=== PATIENT | male | born 1980 | race Caucasian/White ===

== ENCOUNTER → 2016-07-23 | Outpatient (CLI) | payer BC ==
--- NOTE | 2016-07-26 09:21 | XR ---
EXAMINATION TYPE: XR chest 2V DATE OF EXAM: 07/23/2016 12:54 PM COMPARISON: NONE TECHNIQUE: PA and lateral views submitted. HISTORY: Chest pain FINDINGS: The lungs are clear and there is no pneumothorax, pleural effusion, or focal pneumonia. IMPRESSION: 1. No acute process.
== END | disposition home or self-care (01) ==
LOC: RADXRYALE 11:56
PROVIDERS: ATTEND Family Medicine
DX: R07.1 Chest pain on breathing (principal)
CPT/HCPCS: 71020

== ENCOUNTER 2019-07-04 21:47 | Emergency (ER) | payer BC ==
[2019-07-04] MEDS ORDERED: SODIUM CHLORIDE 0.9% 1,000 ML IV STA (22:10)
[2019-07-04 22:32] LABS: Basophils % (A) 0 %; Eosinophils # (A) 0.1 k/uL (0-0.7); Eosinophils % (A) 3 %; HCT 44.6 % (39.0-53.0); HGB 15.1 gm/dL (13.0-17.5); Lymphocytes # (A) 1.5 k/uL (1.0-4.8); Lymphocytes % (A) 33 %; MCHC 33.9 g/dL (31.0-37.0); MCV 91.4 fL (80.0-100.0); Mean Platelet Volume 8.6; Monocytes # (A) 0.3 k/uL (0-1.0); Monocytes % (A) 5 %; Neutrophils # (A) 2.6 k/uL (1.3-7.7); Neutrophils % (A) 56 %; Platelet Count 132 k/uL (150-450); RBC 4.87 m/uL (4.30-5.90); RDW 12.6 % (11.5-15.5); WBC 4.7 k/uL (3.8-10.6)
[2019-07-04 22:36] LABS: Amorphous Sediment,Urine Rare /hpf; Appearance,Urine Cloudy (Clear); Bilirubin,Urine Negative (Negative); Blood,Urine Negative (Negative); Color,Urine Yellow; Glucose,Urine (UA) Negative (Negative); Ketones,Urine Negative (Negative); Leukocyte Esterase,Urine Negative (Negative); Mucus,Urine Rare /hpf; Nitrite,Urine Negative (Negative); PH, Urine 7.5 (5.0-8.0); Protein,Urine Negative (Negative); RBC,Urine 2 /hpf (0-5); Specific Gravity,Urine 1.017 (1.001-1.035); Squamous Epithelial Cell,Urine 1 /hpf (0-4); Urobilinogen,Urine <2.0 mg/dL (<2.0); WBC,Urine 3 /hpf (0-5)
[2019-07-04 22:40] LABS: ALT 60 U/L (4-49); AST 36 U/L (17-59); African American GFR (CKD) >90 (>60 ml/min/1.73 sqM); Albumin 4.3 g/dL (3.5-5.0); Alkaline Phosphatase 49 U/L (38-126); Anion Gap 6 mmol/L; Blood Urea Nitrogen 15 mg/dL (9-20); Calcium 9.2 mg/dL (8.4-10.2); Carbon Dioxide 26 mmol/L (22-30); Chloride 102 mmol/L (98-107); Glucose 124 mg/dL (74-99); Magnesium 2.2 mg/dL (1.6-2.3); Non-African American GFR(CKD) >90 (>60 ml/min/1.73 sqM); Potassium 3.9 mmol/L (3.5-5.1); Sodium 134 mmol/L (137-145); Total Bilirubin 0.8 mg/dL (0.2-1.3); Total Protein 7.1 g/dL (6.3-8.2)
[2019-07-04 22:44] LABS: D-Dimer <0.17 mg/L FEU (<0.60); Partial Thromboplastin Time 22.7 sec (22.0-30.0); Prothrombin Time 10.6 sec (9.0-12.0)
--- NOTE | 2019-07-04 23:01 | XR ---
EXAMINATION TYPE: XR chest 2V DATE OF EXAM: 07/04/2019 COMPARISON: 07/23/2016 HISTORY: Syncope TECHNIQUE: FINDINGS: Heart and mediastinum are normal. Lungs are clear of infiltrate. There is no hilar masses. Costophrenic angles are clear. Bony thorax is intact. There are chest leads. IMPRESSION: No active cardiopulmonary disease. Normal heart. No change.
[2019-07-04] MEDS ORDERED: LORazepam 1 MG TAB PO STA (23:39)
--- NOTE | 2019-07-05 00:13 | ED ---
General Adult HPI - General Chief complaint: Syncope Stated complaint: Near Syncope Time Seen by Provider: 07/04/19 21:49 Source: EMS, RN notes reviewed, old records reviewed Mode of arrival: EMS Limitations: no limitations - History of Present Illness Initial comments: 39-year-old male patient presents to ED for chief complaint of near syncopal episode. Patient reports that he was at home sitting on the couch when he began to feel lightheaded, tightness in his chest and mildly short of breath. Patient reports that he fell nauseous and palms were sweaty. Patient reports that he feels that he felt as if he was going to pass out. This reportedly went for approximately 20 minutes or so. Denies experiencing any pain. Upon arrival she reports that he feels much improved. Denies any discomfrot at this time. Reports he is breathing at baseline. Reports that he does have history of his father having a heart attack at age 50. Patient does report that he used to be a smoker and has quit 2 years ago. Denies any other risk factors. Denies any h ypertension hypercholesterolemia, hyperlipidemia, diabetes. Systemic: Pt denies fatigue, fever/chills, rash. Pt denies weakness, night sweats, weight loss. Neuro: Pt denies headache, visual disturbances, syncope or pre-syncope. HEENT: Pt denies ocular discharge or irritation, otalgia, rhinorrhea, pharyngitis or notable lymphadenopathy. Cardiopulmonary: Pt denies chest pain, heart palpitations, dyspnea on exertion. Abdominal/GI: Pt denies abdominal pain, n/v/d. : Pt denies dysuria, burning w/ urination, frequency/urgency. Denies new onset urinary or bowel incontinence. MSK: Pt denies myalgia, loss of strength or function in extremities. Neuro: Pt denies new onset weakness, paresthesias. - Related Data Allergies Allergy/AdvReac Type Severity Reaction Status Date / Time No Known Allergies Allergy Verified 07/04/19 21:58 Review of Systems ROS Statement: Those systems with pertinent positive or pertinent negative responses have been documented in the HPI. ROS Other: All systems not noted in ROS Statement are negative. Past Medical History Additional Past Medical History / Comment(s): ghout History of Any Multi-Drug Resistant Organisms: None Reported Past Surgical History: Cholecystectomy Past Psychological History: No Psychological Hx Reported Smoking Status: Former smoker Past Alcohol Use History: Occasional Past Drug Use History: None Reported General Exam - General Exam Comments Initial Comments: Constitutional: NAD, AOX3, Pt has pleasant affect. HEENT: NC/AT, trachea midline, neck supple, no lymphadenopathy. Posterior pharynx non erythematous, without exudates. External ears appear normal, without discharge. Mucous membranes moist. Eyes PERRLA, EOM intact. There is no scleral icterus. No pallor noted. Cardiopulmonary: RRR, no murmurs, rubs or gallops, no JVD noted. Lungs CTAB in anterior and posterior brand. No peripheral edema. Abdominal exam: Abdomen soft and non-distended. Abdomen non-tender to palpation in all 4 quadrants. Bowel sounds active in LLQ. No hepatosplenomegaly. No ecchymosis Neuro: CN II-XII intact. No nuchal rigidity. No raccon eyes, no you sign, no hemotympanum. No cervical spinal tenderness. MSK: No posterior calf tenderness bilaterally, homans sign negative bilaterally. Posterior tibialis and radial pulse +2 bilaterally. Sensation intact in upper and lower extremities. Full active ROM in upper and lower extremities, 5/5 s tregnth. Limitations: no limitations Course Vital Signs 07/04/19 07/04/19 07/05/19 21:58 23:20 02:04 Temperature 98.0 F 98 F Pulse Rate 77 89 88 Respiratory 16 16 18 Rate Blood Pressure 134/89 124/87 132/78 O2 Sat by Pulse 98 99 100 Oximetry Medical Decision Making - Medical Decision Making 39-year-old male patient presents in ED for evaluation of presyncopal event. Patient vital signs stable, afebrile. Physical exam didn't display acute pathology. Laboratory investigations are noncompressive. D-dimer is negative. Troponin is negative. Chest x-ray displayed no acute process. Patient signed out to Dr. Martinez pending repeat troponin. Pt was discharged by Dr. Clemente after second troponin was negative. - Lab Data Result diagrams: 07/04/19 22:10 07/04/19 22:10 Lab Results 07/04/19 07/04/19 07/04/19 Range/Units 22:10 22:10 22:10 WBC 4.7 (3.8-10.6) k/uL RBC 4.87 (4.30-5.90) m/uL Hgb 15.1 (13.0-17.5) gm/dL Hct 44.6 (39.0-53.0) % MCV 91.4 (80.0-100.0) fL MCH 31.0 (25.0-35.0) pg MCHC 33.9 (31.0-37.0) g/dL RDW 12.6 (11.5-15.5) % Plt Count 132 L (150-450) k/uL Neutrophils % 56 % Lymphocytes % 33 % Monocytes % 5 % Eosinophils % 3 % Basophils % 0 % Neutrophils # 2.6 (1.3-7.7) k/uL Lymphocytes # 1.5 (1.0-4.8) k/uL Monocytes # 0.3 (0-1.0) k/uL Eosinophils # 0.1 (0-0.7) k/uL Basophils # 0.0 (0-0.2) k/uL PT (9.0-12.0) sec INR (<1.2) APTT (22.0-30.0) sec D-Dimer (<0.60) mg/L FEU Sodium 134 L (137-145) mmol/L Potassium 3.9 (3.5-5.1) mmol/L Chloride 102 (98-107) mmol/L Carbon Dioxide 26 (22-30) mmol/L Anion Gap 6 mmol/L BUN 15 (9-20) mg/dL Creatinine 1.04 (0.66-1.25) mg/dL Est GFR (CKD-EPI)AfAm >90 (>60 ml/min/1.73 sqM) Est GFR (CKD-EPI)NonAf >90 (>60 ml/min/1.73 sqM) Glucose 124 H (74-99) mg/dL Calcium 9.2 (8.4-10.2) mg/dL Magnesium 2.2 (1.6-2.3) mg/dL Total Bilirubin 0.8 (0.2-1.3) mg/dL AST 36 (17-59) U/L ALT 60 H (4-49) U/L Alkaline Phosphatase 49 (38-126) U/L Troponin I <0.012 (0.000-0.034) ng/mL Total Protein 7.1 (6.3-8.2) g/dL Albumin 4.3 (3.5-5.0) g/dL Urine Color Urine Appearance (Clear) Urine pH (5.0-8.0) Ur Specific Crump (1.001-1.035) Urine Protein (Negative) Urine Glucose (UA) (Negative) Urine Ketones (Negative) Urine Blood (Negative) Urine Nitrite (Negative) Urine Bilirubin (Negative) Urine Urobilinogen (<2.0) mg/dL Ur Leukocyte Esterase (Negative) Urine RBC (0-5) /hpf Urine WBC (0-5) /hpf Ur Squamous Epith Cells (0-4) /hpf Amorphous Sediment (None) /hpf Urine Mucus (None) /hpf 07/04/19 07/04/19 07/05/19 Range/Units 22:30 22:30 01:11 WBC (3.8-10.6) k/uL RBC (4.30-5.90) m/uL Hgb (13.0-17.5) gm/dL Hct (39.0-53.0) % MCV (80.0-100.0) fL MCH (25.0-35.0) pg MCHC (31.0-37.0) g/dL RDW (11.5-15.5) % Plt Count (150-450) k/uL Neutrophils % % Lymphocytes % % Monocytes % % Eosinophils % % Basophils % % Neutrophils # (1.3-7.7) k/uL Lymphocytes # (1.0-4.8) k/uL Monocytes # (0-1.0) k/uL Eosinophils # (0-0.7) k/uL Basophils # (0-0.2) k/uL PT 10.6 (9.0-12.0) sec INR 1.0 (<1.2) APTT 22.7 (22.0-30.0) sec D-Dimer <0.17 (<0.60) mg/L FEU Sodium (137-145) mmol/L Potassium (3.5-5.1) mmol/L Chloride (98-107) mmol/L Carbon Dioxide (22-30) mmol/L Anion Gap mmol/L BUN (9-20) mg/dL Creatinine (0.66-1.25) mg/dL Est GFR (CKD-EPI)AfAm (>60 ml/min/1.73 sqM) Est GFR (CKD-EPI)NonAf (>60 ml/min/1.73 sqM) Glucose (74-99) mg/dL Calcium (8.4-10.2) mg/dL Magnesium (1.6-2.3) mg/dL Total Bilirubin (0.2-1.3) mg/dL AST (17-59) U/L ALT (4-49) U/L Alkaline Phosphatase (38-126) U/L Troponin I <0.012 (0.000-0.034) ng/mL Total Protein (6.3-8.2) g/dL Albumin (3.5-5.0) g/dL Urine Color Yellow Urine Appearance Cloudy (Clear) Urine pH 7.5 (5.0-8.0) Ur Specific Crump 1.017 (1.001-1.035) Urine Protein Negative (Negative) Urine Glucose (UA) Negative (Negative) Urine Ketones Negative (Negative) Urine Blood Negative (Negative) Urine Nitrite Negative (Negative) Urine Bilirubin Negative (Negative) Urine Urobilinogen <2.0 (<2.0) mg/dL Ur Leukocyte Esterase Negative (Negative) Urine RBC 2 (0-5) /hpf Urine WBC 3 (0-5) /hpf Ur Squamous Epith Cells 1 (0-4) /hpf Amorphous Sediment Rare H (None) /hpf Urine Mucus Rare H (None) /hpf Disposition Clinical Impression: Pre-syncope Disposition: HOME SELF-CARE Condition: Stable Instructions (If sedation given, give patient instructions): Near Syncope (ED) Additional Instructions: Follow-up with primary care provider tomorrow. Return to ER if condition worsens in any way. Is patient prescribed a controlled substance at d/c from ED?: No Referrals: Adam Dao DO [Primary Care Provider] - 1-2 days
[2019-07-05 02:05] VITALS: BP 132/78; PULSE 88; RESP 18; TEMP 98
== END 2019-07-05 02:06 | disposition home or self-care (01) ==
LOC: EC 21:47
DX: R55 Syncope and collapse (principal); Z87.891 Personal history of nicotine dependence
CPT/HCPCS: 36415; 71046; 80053; 81001; 83735; 84484; 85025; 85379; 85610; 85730; 93005; 96360; 96361; 99285

== ENCOUNTER → 2019-07-18 | Outpatient (CLI) | payer BC ==
--- NOTE | 2019-07-18 10:00 | ECHOF ---
Referral Reason:R07.9 Chest Pain R42 Dizziness MEASUREMENTS -------- HEIGHT: 188.0 cm WEIGHT: 104.3 kg BP: 118/74 RVIDd: 3.4 cm (< 3.3) IVSd: 1.1 cm (0.6 - 1.1) LVIDd: 4.6 cm (3.9 - 5.3) LVPWd: 1.0 cm (0.6 - 1.1) IVSs: 1.6 cm LVIDs: 3.4 cm LVPWs: 1.6 cm LA Diam: 3.4 cm (2.7 - 3.8) LAESV Index (A-L): 19.69 ml/m Ao Diam: 3.4 cm (2.0 - 3.7) AV Cusp: 2.1 cm (1.5 - 2.6) MV EXCURSION: 19.848 mm (> 18.000) MV EF SLOPE: 128 mm/s (70 - 150) EPSS: 0.4 cm MV E Homar: 0.56 m/s MV DecT: 339 ms MV A Homar: 0.39 m/s MV E/A Ratio: 1.41 FINDINGS -------- Sinus rhythm. This was a technically good study. The left ventricular size is normal. There is borderline concentric left ventricular hypertrophy. Overall left ventricular systolic function is normal with, an EF between 60 - 65 %. The right ventricle is mildly enlarged. Normal LA size by volume 22+/-6 ml/m2. The right atrium is normal in size. Interatrial and interventricular septum intact. The aortic valve is trileaflet and appears structurally normal. There is trace mitral regurgitation. The tricuspid valve appears structurally normal. Trace/mild (physiologic) pulmonic regurgitation. The aortic root size is normal. Normal inferior vena cava with normal inspiratory collapse consistent with estimated right atrial pre ssure of 5 mmHg. There is no pericardial effusion. CONCLUSIONS -------- 1. Sinus rhythm. 2. This was a technically good study. 3. The left ventricular size is normal. 4. There is borderline concentric left ventricular hypertrophy. 5. Overall left ventricular systolic function is normal with, an EF between 60 - 65 %. 6. The right ventricle is mildly enlarged. 7. Normal LA size by volume 22+/-6 ml/m2. 8. The right atrium is normal in size. 9. Interatrial and interventricular septum intact. 10. The aortic valve is trileaflet and appears structurally normal. 11. There is trace mitral regurgitation. 12. The tricuspid valve appears structurally normal. 13. Trace/mild (physiologic) pulmonic regurgitation. 14. The aortic root size is normal. 15. Normal inferior vena cava with normal inspiratory collapse consistent with estimated right atrial pressure of 5 mmHg. 16. There is no pericardial effusion. SHADE MAKER: Carey Lugo RDCS
--- NOTE | 2019-07-18 11:10 | EST ---
EXERCISE STRESS DATE OF SERVICE: 07/18/2019 AGE: 39 SEX: Male HT: 74" WT: 230 pounds PROTOCOL: Mike STAGE: IV DURATION OF EXERCISE: 12 minutes HEART RATE REST: 76 BLOOD PRESSURE REST: 117/85 MAXIMUM HEART RATE ACHIEVED: 158 MAXIMUM BLOOD PRESSURE: 165/84 85% MPHR: 156 100% MPHR: 183 METS: 12.3 INDICATIONS: Chest pain and dizziness. CLINICAL INFORMATION: This is a 39-year-old male patient who underwent an exercise stress test for chest pain and dizziness. Baseline heart rate 76 beats per minute. Baseline blood pressure 117/85 mmHg. Baseline 12-lead ECG shows normal sinus rhythm. There was early repolarization abnormality inferolateral. Patient exercised on a Mike protocol for 12 minutes achieving a peak heart rate of 158 beats per minute. There was no ECG evidence for ischemia. No arrhythmias were noted. Normal blood pressure response to exercise. IMPRESSION: Excellent exercise capacity. Normal heart rate response. Normal blood pressure response. No ECG evidence for ischemia or arrhythmias. MMODL / IJN: [id number] /
--- NOTE | 2019-07-18 13:08 | MR ---
EXAMINATION TYPE: MR brain wo/w con DATE OF EXAM: 07/18/2019 COMPARISON: 09/23/2014 HISTORY: 39-year-old male headaches, Dizziness and giddiness TECHNIQUE: Multiplanar, multisequence images of the brain and brainstem were acquired before and aft er administration of 10 mL IV Gadavist. Diffusion weighted imaging is performed. FINDINGS: 3.6 x 2.0 x 1.5 cm CSF space along the right paramedian retrocerebellar region is unchanged. No evidence for acute infarction, hemorrhage, any other mass, mass effect, midline shift, herniation, effacement of basal cisterns, or extra-axial fluid collection. The ventricles and sulci are age-appropriate. Major intracranial flow voids are intact. T2/FLAIR weighted sequences show couple punctate right foci within the bilateral subinsular regions, likely blood vessels. Otherwise, no significant T2-weighted white matter abnormality is seen. Particu lar attention to the medulla at the previously questioned site. Postcontrast images show no abnormal hypointensity here. Midline structures demonstrate normal morphology. The craniocervical junction is normal. Post contrast images demonstrate no evidence of pathologic enhancement. Dural venous sinuses are pat ent. 1.5 cm mucosal retention cyst floor of the right maxillary sinus. Otherwise, the visualized sinuses a re clear and the globes are intact. IMPRESSION: 1. Stable 3.6 x 2.0 x 1.5 cm arachnoid cyst right paramedian retrocerebellar region. 2. Otherwise, no intracranial abnormality seen..
== END | disposition home or self-care (01) ==
LOC: RADMRIMAIN 08:12
PROVIDERS: ATTEND Family Medicine
DX: G93.0 Cerebral cysts (principal); R42 Dizziness and giddiness; R07.9 Chest pain, unspecified
CPT/HCPCS: 93017; 93306; 70553; A9585

== ENCOUNTER → 2023-01-04 | Outpatient (CLI) | payer BC ==
--- NOTE | 2023-01-04 09:06 | US ---
EXAMINATION TYPE: US abdomen limited DATE OF EXAM: 01/04/2023 COMPARISON: NONE CLINICAL INDICATION: Male, 42 years old with history of R74.01 ELEVATION OF LEVELS OF LIVER TRANSAMIN ASE L; TECHNIQUE: Multiple sonographic images of the right upper quadrant are obtained. FINDINGS: EXAM MEASUREMENTS: Liver Length: 19.0 cm CBD: 0.6 cm Right Kidney: 12.2 x 5.9 x 5.6 cm Pancreas: obscured by overlying midline bowel gas Liver: enlarged, increased attenuation, decreased visualization of vessels suggestive of fatty infil trate Gallbladder: surgically absent CBD: visualized portions wnl, limited by overlying bowel gas Right Kidney: wnl The pancreas is obscured by overlying bowel gas. Liver is enlarged with increased attenuation without focal lesion. Gallbladder is surgically absent. The visualized portions of the common bile duct with in normal limits. The right kidney is unremarkable without evidence of hydronephrosis, nephrolithiasi s, or solid mass. Cortical medullary differentiation is maintained. IMPRESSION: 1. No acute process. 2. Hepatomegaly with fatty infiltration. 3. Postcholecystectomy changes.
== END | disposition home or self-care (01) ==
LOC: RADUSWWP 06:44
PROVIDERS: ATTEND Family Medicine
DX: K76.0 Fatty (change of) liver, not elsewhere classified (principal); R16.0 Hepatomegaly, not elsewhere classified; R74.01 Elevation of levels of liver transaminase levels; Z90.49 Acquired absence of other specified parts of digestive tract
CPT/HCPCS: 76705

== ENCOUNTER → 2023-10-26 | Outpatient (CLI) | payer BC ==
--- NOTE | 2023-10-26 08:51 | CT ---
EXAMINATION TYPE: CT chest wo con CT DLP: 586.7 mGycm, Automated exposure control for dose reduction was used. DATE OF EXAM: 10/26/2023 6:53 AM COMPARISON: 07/04/2019. CLINICAL INDICATION:Male, 43 years old with history of R07.89 OTHER CHEST PAIN, chest pain TECHNIQUE: Multiple axial images were obtained through the chest. Sagittal and coronal reformats were created for review. Contrast used: mL of (None if empty) Oral contrast used: (None if empty) FINDINGS: LUNGS/ PLEURA: No evidence for focal consolidation, pneumothorax or pleural effusion. AIRWAY: Patent and unremarkable. HEART: Size within normal limits. MEDIASTINUM: No gross evidence of adenopathy. VASCULATURE: No aortic aneurysm. MUSCULOSKELETAL: No acute osseous abnormalities SOFT TISSUES/LYMPH NODES: Electronic device in the right chest wall with leads extending slightly. LOWER NECK: No significant findings. UPPER ABDOMEN: Diffuse low-attenuation to the liver parenchyma. The gallbladder surgically absent. IMPRESSION: 1. No evidence for acute process. 2. Hepatic steatosis.
== END | disposition home or self-care (01) ==
LOC: RADCTMAIN 06:05
PROVIDERS: ATTEND Family Medicine
DX: K76.0 Fatty (change of) liver, not elsewhere classified (principal); R07.89 Other chest pain; Z82.49 Family history of ischemic heart disease and other diseases of the circulatory system
CPT/HCPCS: 71250